=== PATIENT | female | born 2000 | race African-American/Black ===

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

== ENCOUNTER 2021-06-08 01:45 | Emergency (ER) | payer OTHER ==
[2021-06-08] MEDS ORDERED: Morphine 4 MG/ML VIAL ONE (04:07)
[2021-06-08] MEDS ORDERED: Ondansetron PF 4 MG/2 ML Vial ONE (04:28)
== END 2021-06-08 05:57 | disposition home or self-care (01) ==
LOC: ERS 01:45
DX: R11.2 Nausea with vomiting, unspecified (principal); R10.9 Unspecified abdominal pain; K21.9 Gastro-esophageal reflux disease without esophagitis; J45.909 Unspecified asthma, uncomplicated; F17.290 Nicotine dependence, other tobacco product, uncomplicated; Z79.899 Other long term (current) drug therapy
CPT/HCPCS: 96374; J2270; J2405